=== PATIENT | female | born 1945 | race Caucasian/White ===

== ENCOUNTER 2016-10-02 16:20 | Inpatient (IN) | payer MEDICARE, MEDICAID ==
[2016-10-02 17:50] VITALS: BP 109/59
[2016-10-02] MEDS ORDERED: Maalox 30 mL Cup PO PRN (21:05)
--- NOTE | 2016-10-03 02:28 | Psychosocial Evaluation ---
DATE OF SERVICE: 10/02/2016 CHIEF COMPLAINT: Agitation and irritability. HISTORY OF PRESENT ILLNESS: The patient is a 71-year-old male who was transferred from the [facility] to the Med/Surg and Geropsych Unit. The patient has been extremely paranoid and extremely agitated. The patient also has been irritable and in angry mood. The patient was not able to answer any of my questions currently because of her irritability and rambling and paranoia. The patient keeps talking nonsense and yelling at times. The patient also was pointing out her finger in a threatening way and she kept talking with difficulty to interrupt her. The patient also has been disheveled and has been verbally abusive to staff. She also was not able to listen to any of the staff instructions. PAST PSYCHIATRIC HISTORY: The patient was seen by myself in her [facility] and the patient was extremely irritable and agitated and aggressive with the staff and tried to leave the facility multiple times while she was there. PAST MEDICAL HISTORY: The patient was under the care of when she was in the [facility] and she then went to [facility] under Dr. Rivas, and then to [facility] for only one day. SOCIAL HISTORY: The patient is single, never , and has no children. The patient has history of heavy drinking. She currently has not been drinking, but she is a chain smoker. ALLERGIES: No known allergies. MENTAL STATUS EXAMINATION: The patient appears older than her stated age. Angry. Irritable mood. Thought processes are circumstantial and tangential with flight of ideas. Pressured speech. The patient is severely paranoid and delusional. The patient was actively hallucinating, actually did not answer question regarding auditory or visual hallucinations, but talking to herself and extremely paranoid and delusional. The patient did not answer question regarding suicide or homicide. The patient is alert and oriented to the situation, but unable to assess her memory. Poor insight. Poor judgment. ASSESSMENT : PRIMARY DIAGNOSIS: Schizoaffective disorder, mixed type, with psychotic features. TREATMENT PLAN: We will continue monitoring her behavior and her condition closely. Also, we will start the patient on Seroquel and we will adjust the dose. Also, we will start individual, as well as milieu psychotherapy. ESTIMATED LENGTH OF STAY: 7-10 days. THE PATIENT'S STRENGTHS AND WEAKNESSES: The patient's strength is not clear at this time. Weakness is ineffective coping. AFTER DISCHARGE PLAN: Outpatient treatment and followup and the patient will return to [facility] unless placement will be an issue. CRITERIA FOR DISCHARGE: Better impulse control and stabilize psychotropic medications and establish outpatient treatment plans. JOB# [id number]
[2016-10-03] MEDS ORDERED: Haloperidol Lactate 5 mg/mL 1mL Vial ONE (07:16)
[2016-10-03] MEDS ORDERED: Haloperidol Lactate 5 mg/mL 1mL Vial IM ONE (07:17)
[2016-10-03] MEDS: Nicotine 21 mg/24 hr Tdm TD SCH (09:40)
--- NOTE | 2016-10-03 10:05 | Diagnostic Imaging Report ---
CHEST X-RAY: AP view INDICATION: Pneumonia COMPARISON: Chest x-ray 10/02/2016 FINDINGS: Patient is rotated. Large retrocardiac hiatal hernia is noted. Increased left basal lung markings are seen likely due to superimposition of soft tissue structures. Borderline cardiomegaly is noted with atherosclerosis. Degenerative changes of the spine are noted. IMPRESSION: Large retrocardiac hiatal hernia. Increased left basal lung markings likely due to superimposition of soft tissues. Otherwise no focal consolidation identified.
--- NOTE | 2016-10-03 20:03 | Progress Notes ---
DATE: 10/03/2016 SUBJECTIVE: Chart reviewed and the patient interviewed. Also, discussed the patient's condition with the staff and reviewed records and labs. The patient continued to be extremely irritable and extremely agitated. The patient also is yelling and screaming constantly and have difficulty following any of staff directions. The patient also was throwing water towards other patients and at staff. She also is still having severe anger and irritability and unable to follow any of staff directions. ASSESSMENT: The patient is still extremely irritable and agitated. TREATMENT PLAN: We will continue monitoring her behavior and her condition closely. We will also continue to work on her anger and her severe mood swings. Also, the patient started on Seroquel, but we will change the dose to 100 mg in the morning and at noon and at bedtime and we will continue to follow up. JOB# [id number]
[2016-10-04] MEDS: Nicotine 21 mg/24 hr Tdm TD SCH (09:52)
--- NOTE | 2016-10-04 19:49 | Progress Notes ---
DATE: 10/04/2016 SUBJECTIVE: The patient was seen, chart reviewed, and discussed with staff. The patient remains symptomatic, combative, refusing medications, getting emergency medications, throwing objects at staff, paranoid, agitated. States she is homeless, talking nonsensically, abusive, towards the clinician. States she has been in multiple psychiatric hospitals in the past. ASSESSMENT: The patient states "I'm crazy," very upset, agitated, demanding, aggressive, requiring emergency medications. PLAN: We will continue to monitor. We will encourage med compliance. The patient under the care of Dr. Ramirez at night. We will continue to monitor. Given the severity of the patient's current symptoms, she is not safe for discharge at this time. We will correct Seroquel dosage. JOB# [id number]
--- NOTE | 2016-10-04 21:41 | Admit Criteria Form ---
Admit Criteria Forms - Admit Criteria Diagnosis: PSYCHIATRIC DISORDERS (Place 'X' for any and all applicable criteria): Ongoing inpatient care may be needed for 1 or more of the following(1)(2)(3)(4)( 6)(7)(8): [ ]I. Danger to self or others not manageable at lower level of care. [ ]II. Grave disability (eg, inability to perform self care necessary at lower level of care) [ ]III. Agitation or inappropriate behavior interfering with care for primary condition (eg, attempting to discontinue lines or drains prematurely, unable to cooperate with respiratory care) [X ]IV. Severe disability or disorder indicated by ALL of the following: [X ]a) Severe behavioral health disorder-related symptoms or condition indicated by 1 or more of the following: [X ]i) Severe problem with cognition, memory, judgment, or impulse control [X ]ii) Severe clinical manifestations (eg, hallucinations , delusions, other acute psychotic symptoms, aida, extreme agitation or anxiety) [X ]b) Patient management at lower level of care is not feasible until acute intervention or modification is initiated. Extended stay beyond goal length of stay for the primary condition may be needed until ALLof the following are present(1)(2)(3)(4)(722)(23): [ ]a) Danger to self or others is absent or manageable at lower level of care [ ]b) Behavior crisis management, including physical or chemical restraints, is required and is not available at a lower level of care. [ ]c) Behavioral symptoms (e.g., agitation, somnolence, inappropriate behavior) are present, and are not manageable at a lower level of care. [ ]d) Patient cannot understand follow-up treatment and crisis plan. [ ]e) Provider and supports are sufficiently available at lower level of care. [ ]f) Patient can participate (e.g., verify absence of plan for harm) and is in needed of monitoring. The original [facility] content created by [facility] has been revised. The portions of the content which have been revised are identified through the use of italic text or in bold, and [facility] has neither reviewed nor approved the modified material. All other unmodified content is copyright [facility]. Please see references footnoted in the original [facility] edition 2017 Admit Criteria Met?: Yes
--- NOTE | 2016-10-05 09:22 | General Progress Note ---
Subjective - Review of Systems Events since last encounter: no distress Objective - Physical Exam Vitals and I&O: Vital Signs Temp 98.2 F 10/04/16 19:44 Pulse 91 10/04/16 19:44 Resp 18 10/04/16 19:44 BP 105/71 10/04/16 19:44 Pulse Ox 96 10/04/16 19:44 Intake & Output 10/04/16 10/05/16 10/05/16 18:59 06:59 18:59 Intake Total 1950 240 Balance 1950 240 Intake: Oral 1950 240 Other: # Voids 4 1 # Bowel Movements 0 Active Medications: Current Medications Acetaminophen (Tylenol) 650 mg PO Q4HR PRN PRN Reason: PAIN OR TEMP>100 Stop: 12/01/16 21:02 Al Hydrox/Mg Hydrox/Simethicone (Maalox) 30 ml PO Q6H PRN PRN Reason: Dyspepsia Stop: 12/01/16 21:04 Amoxicillin (Amoxil) 500 mg PO TID [facility] Stop: 12/02/16 08:59 Last Admin: 10/04/16 21:00 Dose: 500 mg Aspirin (Ecotrin) 81 mg PO DAILY [facility] Stop: 12/02/16 08:59 Last Admin: 10/04/16 09:52 Dose: Not Given Clopidogrel Bisulfate (Plavix) 75 mg PO DAILY [facility] Stop: 12/02/16 08:59 Last Admin: 10/04/16 09:52 Dose: Not Given Famotidine (Pepcid) 20 mg PO DAILY [facility] Stop: 12/02/16 08:59 Last Admin: 10/04/16 09:52 Dose: Not Given Lorazepam (Ativan) 1 mg PO Q6H PRN; Protocol PRN Reason: Anxiety/Agitation Stop: 12/01/16 21:04 Nicotine (Nicotine Transdermal System) 21 mg TD DAILY [facility] Stop: 12/02/16 08:59 Last Admin: 10/04/16 09:52 Dose: Not Given Quetiapine Fumarate (Seroquel) 50 mg PO HS [facility] PRN Reason: Protocol Stop: 12/02/16 20:59 Last Admin: 10/04/16 21:00 Dose: 50 mg Quetiapine Fumarate (Seroquel) 100 mg PO TID [facility] PRN Reason: Protocol Stop: 12/02/16 08:59 Last Admin: 10/04/16 21:00 Dose: 100 mg Zolpidem Tartrate (Ambien) 5 mg PO HS PRN PRN Reason: Insomnia Stop: 12/01/16 21:04 General: No acute distress HEENT: Atraumatic Lungs: Clear to auscultation Assessment/Plan - Problem List Patient Problems: All Active Problems UTI WITH AGGRESSIVE BEHAVIOR (Acute) - Plan Plan: as per psych continue current management
[2016-10-05] MEDS: Nicotine 21 mg/24 hr Tdm TD SCH (09:50)
--- NOTE | 2016-10-05 20:58 | Progress Notes ---
DATE: 10/05/2016 SUBJECTIVE: The patient seen, chart reviewed, discussed with staff. The patient coming in from nursing facility, angry, irritable, impulsive, yelling, screaming, threatening, demanding that I fix her , demanding that I get her coffee. The patient essentially refusing interview, just making demands, not answering most questions today. She is pretty hostile. The patient has gotten emergency medications while she has been in the hospital, and has also been at times refusing medications. ASSESSMENT AND PLAN: The patient remains symptomatic, impulsive, upset, angry, grandiose, not safe for a lower level of care. At this time, we will continue to encourage medication compliance. If she continues to refuse medications she may need a [place] petition. Given the severity of her symptoms there are continued safety concerns. JOB# [id number]
--- NOTE | 2016-10-06 01:39 | History & Physical ---
ADMIT DATE: 10/02/2016 CHIEF COMPLAINT: Irritability with agitation. HISTORY OF PRESENT ILLNESS: This is a 71-year-old female who was admitted from a convalescent hospital through the Med/Surg Unit, then admitted to the Geropsych Unit due to agitation and irritability. REVIEW OF SYSTEMS: GENERAL: This is a 71-year-old female that appears as stated age. The patient is a poor historian due to confusion and possible medical condition. HEAD: Denies any headache. EYES: Denies any blurring of vision. Denies any eye pain. NECK: Denies any nuchal rigidity. Denies any neck pain. CARDIOVASCULAR: Denies any palpitation. Denies any chest pain. PULMONARY: Denies coughing. Denies shortness of breath. GASTROINTESTINAL: Denies abdominal pain. Denies diarrhea. Denies constipation. GENITOURINARY: Denies any dysuria. MUSCULOSKELETAL: Denies any muscle pain. Denies any joint pain. PAST MEDICAL HISTORY: Includes coronary artery disease, gastroesophageal reflux disease, osteoarthritis, schizoaffective disorder, insomnia and nicotine dependence. SOCIAL HISTORY: The patient lived in a convalescent hospital prior to admission. FAMILY HISTORY: Unremarkable. PAST SURGICAL HISTORY: Unremarkable. PHYSICAL EXAMINATION: VITAL SIGNS: Temperature 97.6, heart rate of 70, blood pressure 105/67, respirations of 19, 98% on room air. GENERAL: The patient appears to be comfortable in no acute distress, but poor historian due to medical condition. HEENT: Head is atraumatic, normocephalic. Eyes: Bilateral conjunctivae are clear. Bilateral pupils are equally round and reactive. NECK: Supple. No JVD. CARDIOVASCULAR: S1 and S2, without murmur. PULMONARY: Clear to auscultation. GASTROINTESTINAL: Soft and nontender without guarding. Positive bowel sounds. MUSCULOSKELETAL: No clubbing, no cyanosis noted. ASSESSMENT: 1. Schizoaffective disorder. 2. Anxiety. 3. Insomnia. 4. Nicotine dependence. 5. Coronary artery disease. 6. Gastroesophageal reflux disease. PLAN: [facility] We will follow up with the Psychiatrist to monitor the patient's condition and possible medication adjustment. Treatment plans were discussed with Dr. Neff. JOB# [id number]
[2016-10-06] MEDS: Nicotine 21 mg/24 hr Tdm TD SCH (14:43)
--- NOTE | 2016-10-06 16:05 | General Progress Note ---
Subjective - Review of Systems Events since last encounter: patient remains irritable , angry psychosis Objective - Physical Exam Vitals and I&O: Vital Signs Temp 97.7 F 10/06/16 06:17 Pulse 81 10/06/16 06:17 Resp 20 10/06/16 06:17 BP 102/75 10/06/16 06:17 Pulse Ox 98 10/06/16 06:17 Intake & Output 10/05/16 10/06/16 10/06/16 18:59 06:59 18:59 Intake Total 950 240 Balance 950 240 Intake: Oral 950 240 Other: # Voids 4 0 # Bowel Movements 1 0 Active Medications: Current Medications Acetaminophen (Tylenol) 650 mg PO Q4HR PRN PRN Reason: PAIN OR TEMP>100 Stop: 12/01/16 21:02 Al Hydrox/Mg Hydrox/Simethicone (Maalox) 30 ml PO Q6H PRN PRN Reason: Dyspepsia Stop: 12/01/16 21:04 Amoxicillin (Amoxil) 500 mg PO TID [facility] Stop: 12/02/16 08:59 Last Admin: 10/06/16 14:55 Dose: 500 mg Aspirin (Ecotrin) 81 mg PO DAILY [facility] Stop: 12/02/16 08:59 Last Admin: 10/06/16 10:07 Dose: 81 mg Clopidogrel Bisulfate (Plavix) 75 mg PO DAILY [facility] Stop: 12/02/16 08:59 Last Admin: 10/06/16 10:06 Dose: 75 mg Famotidine (Pepcid) 20 mg PO DAILY [facility] Stop: 12/02/16 08:59 Last Admin: 10/06/16 10:06 Dose: 20 mg Lorazepam (Ativan) 1 mg PO Q6H PRN; Protocol PRN Reason: Anxiety/Agitation Stop: 12/01/16 21:04 Nicotine (Nicotine Transdermal System) 21 mg TD DAILY [facility] Stop: 12/02/16 08:59 Last Admin: 10/06/16 14:43 Dose: Not Given Quetiapine Fumarate (Seroquel) 100 mg PO TID [facility] PRN Reason: Protocol Stop: 12/02/16 08:59 Last Admin: 10/06/16 14:55 Dose: 100 mg Quetiapine Fumarate 50 mg/ (Quetiapine Fumarate 25 mg) 75 mg PO [facility] Stop: 12/05/16 20:59 Zolpidem Tartrate (Ambien) 5 mg PO HS PRN PRN Reason: Insomnia Stop: 12/01/16 21:04 General: No acute distress Neck: Supple Cardiovascular: Regular rate Abdomen: Bowel sounds Assessment/Plan - Problem List Patient Problems: All Active Problems UTI WITH AGGRESSIVE BEHAVIOR (Acute) - Plan Plan: as per psych continue current management
--- NOTE | 2016-10-07 03:36 | Progress Notes ---
DATE: 10/06/[address] Ramirez. This is a 71-year-old female who was admitted on 10/02/2016. The patient was transferred from [facility] to Med/Surg. The patient has been extremely paranoid, agitated, irritable and angry and not able to answer most of the questions, kept making nonsense, yelling at times, screaming, disheveled, verbally abusive to staff, not able to answer questions. Dr. Ramirez has seen on ____. She noted that she was very irritable then and aggressive. The patient When I talked to her, she was very irritable, unreasonable, very hard to redirect. Dr. Ramirez has her on Seroquel 25 mg at bedtime and ____ 3 times a day. She has been compliant with the medication with no side effects, no sedation, no nausea. I will be increasing her Seroquel dose at bedtime to ____ mg and so far no side effects, no sedation, no nausea, no extrapyramidal symptoms and we will continue to work with the patient in group therapy, milieu therapy, adjust the medication as needed. JOB# [id number]
--- NOTE | 2016-10-07 15:45 | General Progress Note ---
Objective - Physical Exam Vitals and I&O: Vital Signs Temp 97.8 F 10/07/16 06:25 Pulse 84 10/07/16 06:25 Resp 19 10/07/16 06:25 BP 110/71 10/07/16 06:25 Pulse Ox 96 10/07/16 06:25 Intake & Output 10/06/16 10/07/16 10/07/16 18:59 06:59 18:59 Intake Total 1800 120 Balance 1800 120 Intake: Oral 1800 120 Other: # Voids 4 3 # Bowel Movements 1 0 Active Medications: Current Medications Acetaminophen (Tylenol) 650 mg PO Q4HR PRN PRN Reason: PAIN OR TEMP>100 Stop: 12/01/16 21:02 Al Hydrox/Mg Hydrox/Simethicone (Maalox) 30 ml PO Q6H PRN PRN Reason: Dyspepsia Stop: 12/01/16 21:04 Amoxicillin (Amoxil) 500 mg PO TID [facility] Stop: 12/02/16 08:59 Last Admin: 10/07/16 08:12 Dose: 500 mg Aspirin (Ecotrin) 81 mg PO DAILY [facility] Stop: 12/02/16 08:59 Last Admin: 10/07/16 08:10 Dose: 81 mg Clopidogrel Bisulfate (Plavix) 75 mg PO DAILY [facility] Stop: 12/02/16 08:59 Last Admin: 10/07/16 08:10 Dose: 75 mg Famotidine (Pepcid) 20 mg PO DAILY [facility] Stop: 12/02/16 08:59 Last Admin: 10/07/16 08:10 Dose: 20 mg Lorazepam (Ativan) 1 mg PO Q6H PRN; Protocol PRN Reason: Anxiety/Agitation Stop: 12/01/16 21:04 Nicotine (Nicotine Transdermal System) 21 mg TD DAILY [facility] Stop: 12/02/16 08:59 Last Admin: 10/06/16 14:43 Dose: Not Given Quetiapine Fumarate (Seroquel) 100 mg PO TID [facility] PRN Reason: Protocol Stop: 12/02/16 08:59 Last Admin: 10/07/16 08:10 Dose: 100 mg Quetiapine Fumarate 50 mg/ (Quetiapine Fumarate 25 mg) 75 mg PO [facility] Stop: 12/05/16 20:59 Last Admin: 10/06/16 21:24 Dose: Not Given Zolpidem Tartrate (Ambien) 5 mg PO HS PRN PRN Reason: Insomnia Stop: 12/01/16 21:04 Last Admin: 10/07/16 00:05 Dose: 5 mg Assessment/Plan - Problem List Patient Problems: All Active Problems UTI WITH AGGRESSIVE BEHAVIOR (Acute) - Plan Plan: as per psych continue current management
[2016-10-07] MEDS: Nicotine 21 mg/24 hr Tdm TD SCH (17:43)
--- NOTE | 2016-10-08 08:15 | General Progress Note ---
Subjective - Review of Systems Events since last encounter: patient continues to be agitated , depressed Objective - Physical Exam Vitals and I&O: Vital Signs Temp 97.2 F 10/08/16 05:52 Pulse 77 10/08/16 05:52 Resp 20 10/08/16 05:52 BP 116/67 10/08/16 05:52 Pulse Ox 98 10/08/16 05:52 Intake & Output 10/07/16 10/08/16 10/08/16 18:59 06:59 18:59 Intake Total 2600 120 Balance 2600 120 Intake: Oral 2600 120 Other: # Voids 4 3 # Bowel Movements 1 Active Medications: Current Medications Acetaminophen (Tylenol) 650 mg PO Q4HR PRN PRN Reason: PAIN OR TEMP>100 Stop: 12/01/16 21:02 Al Hydrox/Mg Hydrox/Simethicone (Maalox) 30 ml PO Q6H PRN PRN Reason: Dyspepsia Stop: 12/01/16 21:04 Amoxicillin (Amoxil) 500 mg PO TID [facility] Stop: 12/02/16 08:59 Last Admin: 10/07/16 20:24 Dose: 500 mg Aspirin (Ecotrin) 81 mg PO DAILY [facility] Stop: 12/02/16 08:59 Last Admin: 10/07/16 08:10 Dose: 81 mg Clopidogrel Bisulfate (Plavix) 75 mg PO DAILY [facility] Stop: 12/02/16 08:59 Last Admin: 10/07/16 08:10 Dose: 75 mg Famotidine (Pepcid) 20 mg PO DAILY [facility] Stop: 12/02/16 08:59 Last Admin: 10/07/16 08:10 Dose: 20 mg Haloperidol (Haldol) 2 mg PO BID [facility] PRN Reason: Protocol Stop: 12/07/16 08:59 Lorazepam (Ativan) 1 mg PO Q6H PRN; Protocol PRN Reason: Anxiety/Agitation Stop: 12/01/16 21:04 Nicotine (Nicotine Transdermal System) 21 mg TD DAILY [facility] Stop: 12/02/16 08:59 Last Admin: 10/07/16 17:43 Dose: Not Given Quetiapine Fumarate (Seroquel) 125 mg PO TID [facility] PRN Reason: Protocol Stop: 12/02/16 08:59 Quetiapine Fumarate (Seroquel) 150 mg PO HS [facility] Stop: 12/05/16 20:59 Zolpidem Tartrate (Ambien) 5 mg PO HS PRN PRN Reason: Insomnia Stop: 12/01/16 21:04 Last Admin: 10/07/16 00:05 Dose: 5 mg General: No acute distress HEENT: Atraumatic Cardiovascular: Regular rate Abdomen: Bowel sounds Assessment/Plan - Problem List Patient Problems: All Active Problems UTI WITH AGGRESSIVE BEHAVIOR (Acute) - Plan Plan: as per psych continue current management
[2016-10-08] MEDS: Nicotine 21 mg/24 hr Tdm TD SCH (08:37)
[2016-10-09] MEDS: Nicotine 21 mg/24 hr Tdm TD SCH (10:11)
--- NOTE | 2016-10-09 10:42 | General Progress Note ---
Subjective - Review of Systems Events since last encounter: patient paranoid , agitated Objective - Physical Exam Vitals and I&O: Vital Signs Temp 97.6 F 10/08/16 14:00 Pulse 90 10/08/16 14:00 Resp 18 10/08/16 14:00 BP 104/64 10/08/16 14:00 Pulse Ox 97 10/08/16 14:00 Intake & Output 10/08/16 10/09/16 10/09/16 18:59 06:59 18:59 Intake Total 1200 Balance 1200 Intake: Oral 1200 Other: # Voids 5 # Bowel Movements 1 Active Medications: Current Medications Acetaminophen (Tylenol) 650 mg PO Q4HR PRN PRN Reason: PAIN OR TEMP>100 Stop: 12/01/16 21:02 Last Admin: 10/09/16 10:17 Dose: 650 mg Al Hydrox/Mg Hydrox/Simethicone (Maalox) 30 ml PO Q6H PRN PRN Reason: Dyspepsia Stop: 12/01/16 21:04 Aspirin (Ecotrin) 81 mg PO DAILY [facility] Stop: 12/02/16 08:59 Last Admin: 10/09/16 10:08 Dose: Not Given Clopidogrel Bisulfate (Plavix) 75 mg PO DAILY [facility] Stop: 12/02/16 08:59 Last Admin: 10/09/16 10:07 Dose: 75 mg Famotidine (Pepcid) 20 mg PO DAILY [facility] Stop: 12/02/16 08:59 Last Admin: 10/09/16 10:09 Dose: 20 mg Haloperidol (Haldol) 2 mg PO BID [facility] PRN Reason: Protocol Stop: 12/07/16 08:59 Last Admin: 10/09/16 10:04 Dose: 2 mg Lorazepam (Ativan) 1 mg PO Q6H PRN; Protocol PRN Reason: Anxiety/Agitation Stop: 12/01/16 21:04 Last Admin: 10/08/16 08:27 Dose: 1 mg Nicotine (Nicotine Transdermal System) 21 mg TD DAILY [facility] Stop: 12/02/16 08:59 Last Admin: 10/09/16 10:11 Dose: Not Given Quetiapine Fumarate 100 mg/ (Quetiapine Fumarate 25 mg) 125 mg PO TID [facility] Stop: 12/07/16 13:59 Last Admin: 10/09/16 10:10 Dose: 125 mg Quetiapine Fumarate 100 mg/ (Quetiapine Fumarate 50 mg) 150 mg PO HS [facility] Stop: 12/07/16 20:59 Last Admin: 10/08/16 20:50 Dose: 150 mg Zolpidem Tartrate (Ambien) 5 mg PO HS PRN PRN Reason: Insomnia Stop: 12/01/16 21:04 Last Admin: 10/07/16 00:05 Dose: 5 mg General: No acute distress Cardiovascular: Regular rate Abdomen: Bowel sounds Assessment/Plan - Problem List Patient Problems: All Active Problems UTI WITH AGGRESSIVE BEHAVIOR (Acute) - Plan Plan: as per psych continue current management
[2016-10-10] MEDS: Nicotine 21 mg/24 hr Tdm TD SCH (09:23)
--- NOTE | 2016-10-10 09:58 | General Progress Note ---
Subjective - Review of Systems Events since last encounter: patient awake , alert Objective - Physical Exam Vitals and I&O: Vital Signs Temp 97.6 F 10/08/16 14:00 Pulse 90 10/08/16 14:00 Resp 18 10/08/16 14:00 BP 104/64 10/08/16 14:00 Pulse Ox 97 10/08/16 14:00 Intake & Output 10/09/16 10/10/16 10/10/16 18:59 06:59 18:59 Other: # Voids 1 Active Medications: Current Medications Acetaminophen (Tylenol) 650 mg PO Q4HR PRN PRN Reason: PAIN OR TEMP>100 Stop: 12/01/16 21:02 Last Admin: 10/09/16 10:17 Dose: 650 mg Al Hydrox/Mg Hydrox/Simethicone (Maalox) 30 ml PO Q6H PRN PRN Reason: Dyspepsia Stop: 12/01/16 21:04 Aspirin (Ecotrin) 81 mg PO DAILY [facility] Stop: 12/02/16 08:59 Last Admin: 10/10/16 09:23 Dose: 81 mg Clopidogrel Bisulfate (Plavix) 75 mg PO DAILY [facility] Stop: 12/02/16 08:59 Last Admin: 10/10/16 09:22 Dose: 75 mg Famotidine (Pepcid) 20 mg PO DAILY [facility] Stop: 12/02/16 08:59 Last Admin: 10/10/16 09:23 Dose: 20 mg Haloperidol (Haldol) 2 mg PO BID LG PRN Reason: Protocol Stop: 12/07/16 08:59 Last Admin: 10/10/16 09:19 Dose: 2 mg Lorazepam (Ativan) 1 mg PO Q6H PRN; Protocol PRN Reason: Anxiety/Agitation Stop: 12/01/16 21:04 Last Admin: 10/08/16 08:27 Dose: 1 mg Nicotine (Nicotine Transdermal System) 21 mg TD DAILY [facility] Stop: 12/02/16 08:59 Last Admin: 10/10/16 09:23 Dose: Not Given Quetiapine Fumarate 100 mg/ (Quetiapine Fumarate 25 mg) 125 mg PO TID [facility] Stop: 12/07/16 13:59 Last Admin: 10/10/16 09:20 Dose: 125 mg Quetiapine Fumarate 100 mg/ (Quetiapine Fumarate 50 mg) 150 mg PO HS LG Stop: 12/07/16 20:59 Last Admin: 10/09/16 20:35 Dose: Not Given Zolpidem Tartrate (Ambien) 5 mg PO HS PRN PRN Reason: Insomnia Stop: 12/01/16 21:04 Last Admin: 10/07/16 00:05 Dose: 5 mg Assessment/Plan - Problem List Patient Problems: All Active Problems UTI WITH AGGRESSIVE BEHAVIOR (Acute) - Plan Plan: as per psych continue current management Nutritional Asmnt/Malnutr-PDOC - Dietary Evaluation Malnutrition Findings (Please click <Entered> for more info): Nutritional Asmnt/Malnutrition Start: 10/09/16 17: 29 Text: Status: Complete Freq: Document 10/09/16 17:29 [email or web address] (Rec: 10/09/16 17:42 GSUN [email or web address]) Nutritional Asmnt/Malnutrition Patient General Information Nutritional Screening Diagnosis Diagnosis Schizoaffective dsiorder, anxiety Pertinent Medical Hx/Surgical Hx CAD, GERD, osteoarthritis, schizoaffective disorder, insomnia, nicotine dependence Subjective Information 71 year old female. Pt usually seen in wheelchair, RD made small talks with pt before, pt may be very pleasant or unpleasant at times. RD attempted visit twice today, AM and PM, pt slept the whole day except meal time. Spoke to RN, RN stated pt has mood swings, PO intake may be driven by mentation, however so far no nutritional concerns since adm. Unable to complete physical assessment as pt was curled up asleep. Avg PO intake 75-100% of meals since adm, meeting nutritional needs . Current Diet Order/ Nutrition Support Regular Pertinent Medications Maalox, Pepcid, Haldol, Nicotine Transdermal System Pertinent Labs No current labs. Nutritional Hx/Data Height 1.52 m Height (Calculated Centimeters) 152.4 Current Weight (lbs) 51.71 kg Weight (Calculated Kilograms) 51.7 Weight (Calculated Grams) 55526.5 [place] Body Weight 100 Weight Status Approriate GI Symptoms Cultural/Ethnic/Sabianism Belief Pt likes coffee. Skin Integrity/Comment: Cameron Son. Skin intact. Current %PO Good (75-100%) Estimated Nutritional Goals BEE in Kcals: Using Current wt Calories/Kcals/Kg CBW 114lb/51.8kg Kcals Calculated 1295-1554kcal (25-30kcal/kg) Protein: Using Current wt Protein Calculated 52g (1g/kg) Fluid: ml 1295-1554ml (1ml/kcal) Nutritional Problem 1. Problem Problem No nutrition problem at this time. Intervention/Recommendation Comments 1. Continue with current diet. Avg PO intake is adequate. Expected Outcomes/Goals Expected Outcomes/Goals 1. PO intake continue to meet at least 75% of estimated nutritional needs.
[2016-10-10] MEDS ORDERED: Haloperidol Lactate 5 mg/mL 1mL Vial IM STA (10:42)
[2016-10-10] MEDS ORDERED: Haloperidol Lactate 5 mg/mL 1mL Vial ONE (10:44)
[2016-10-11] MEDS: Nicotine 21 mg/24 hr Tdm TD SCH (09:00)
[2016-10-12] MEDS: Nicotine 21 mg/24 hr Tdm TD SCH (13:37)
--- NOTE | 2016-10-12 17:01 | General Progress Note ---
Subjective - Review of Systems Events since last encounter: no distress Objective - Physical Exam Vitals and I&O: Vital Signs Temp 98.0 F 10/12/16 15:47 Pulse 83 10/12/16 15:47 Resp 20 10/12/16 15:47 BP 105/63 10/12/16 15:47 Pulse Ox 96 10/12/16 15:47 Intake & Output 10/11/16 10/12/16 10/12/16 18:59 06:59 18:59 Intake Total 1700 120 Output Total 1 Balance 1699 120 Intake: Oral 1700 120 Output: Stool 1 Other: # Voids 4 4 # Bowel Movements 2 Active Medications: Current Medications Acetaminophen (Tylenol) 650 mg PO Q4HR PRN PRN Reason: PAIN OR TEMP>100 Stop: 12/01/16 21:02 Last Admin: 10/09/16 10:17 Dose: 650 mg Al Hydrox/Mg Hydrox/Simethicone (Maalox) 30 ml PO Q6H PRN PRN Reason: Dyspepsia Stop: 12/01/16 21:04 Last Admin: 10/11/16 15:30 Dose: 30 ml Aspirin (Ecotrin) 81 mg PO DAILY [facility] Stop: 12/02/16 08:59 Last Admin: 10/12/16 13:37 Dose: Not Given Clopidogrel Bisulfate (Plavix) 75 mg PO DAILY [facility] Stop: 12/02/16 08:59 Last Admin: 10/12/16 13:37 Dose: Not Given Famotidine (Pepcid) 20 mg PO DAILY [facility] Stop: 12/02/16 08:59 Last Admin: 10/12/16 13:37 Dose: Not Given Haloperidol (Haldol) 2 mg PO BID LG PRN Reason: Protocol Stop: 12/07/16 08:59 Last Admin: 10/12/16 16:02 Dose: Not Given Lorazepam (Ativan) 1 mg PO Q6H PRN; Protocol PRN Reason: Anxiety/Agitation Stop: 12/01/16 21:04 Last Admin: 10/08/16 08:27 Dose: 1 mg Nicotine (Nicotine Transdermal System) 21 mg TD DAILY [facility] Stop: 12/02/16 08:59 Last Admin: 10/12/16 13:37 Dose: Not Given Quetiapine Fumarate 100 mg/ (Quetiapine Fumarate 25 mg) 125 mg PO TID [facility] Stop: 12/07/16 13:59 Last Admin: 10/12/16 13:37 Dose: Not Given Quetiapine Fumarate 100 mg/ (Quetiapine Fumarate 50 mg) 150 mg PO HS LG Stop: 12/07/16 20:59 Last Admin: 10/11/16 21:08 Dose: 150 mg Zolpidem Tartrate (Ambien) 5 mg PO HS PRN PRN Reason: Insomnia Stop: 12/01/16 21:04 Last Admin: 10/11/16 21:08 Dose: 5 mg General: No acute distress HEENT: Atraumatic Cardiovascular: Regular rate Abdomen: Bowel sounds Assessment/Plan - Problem List Patient Problems: All Active Problems UTI WITH AGGRESSIVE BEHAVIOR (Acute) - Plan Plan: as per psych continue current management Nutritional Asmnt/Malnutr-PDOC - Dietary Evaluation Malnutrition Findings (Please click <Entered> for more info): Nutritional Asmnt/Malnutrition Start: 10/09/16 17: 29 Text: Status: Complete Freq: Document 10/09/16 17:29 GSUN (Rec: 10/09/16 17:42 GSUN [email or web address]) Nutritional Asmnt/Malnutrition Patient General Information Nutritional Screening Diagnosis Diagnosis Schizoaffective dsiorder, anxiety Pertinent Medical Hx/Surgical Hx CAD, GERD, osteoarthritis, schizoaffective disorder, insomnia, nicotine dependence Subjective Information 71 year old female. Pt usually seen in wheelchair, RD made small talks with pt before, pt may be very pleasant or unpleasant at times. RD attempted visit twice today, AM and PM, pt slept the whole day except meal time. Spoke to RN, RN stated pt has mood swings, PO intake may be driven by mentation, however so far no nutritional concerns since adm. Unable to complete physical assessment as pt was curled up asleep. Avg PO intake 75-100% of meals since adm, meeting nutritional needs . Current Diet Order/ Nutrition Support Regular Pertinent Medications Maalox, Pepcid, Haldol, Nicotine Transdermal System Pertinent Labs No current labs. Nutritional Hx/Data Height 1.52 m Height (Calculated Centimeters) 152.4 Current Weight (lbs) 51.71 kg Weight (Calculated Kilograms) 51.7 Weight (Calculated Grams) 97403.5 [place] Body Weight 100 Weight Status Approriate GI Symptoms Cultural/Ethnic/Jain Belief Pt likes coffee. Skin Integrity/Comment: Cameron 19. Skin intact. Current %PO Good (75-100%) Estimated Nutritional Goals BEE in Kcals: Using Current wt Calories/Kcals/Kg CBW 114lb/51.8kg Kcals Calculated 1295-1554kcal (25-30kcal/kg) Protein: Using Current wt Protein Calculated 52g (1g/kg) Fluid: ml 1295-1554ml (1ml/kcal) Nutritional Problem 1. Problem Problem No nutrition problem at this time. Intervention/Recommendation Comments 1. Continue with current diet. Avg PO intake is adequate. Expected Outcomes/Goals Expected Outcomes/Goals 1. PO intake continue to meet at least 75% of estimated nutritional needs.
--- NOTE | 2016-10-13 12:43 | General Progress Note ---
Subjective - Review of Systems Events since last encounter: continues to be paranoid Objective - Physical Exam Vitals and I&O: Vital Signs Temp 98.1 F 10/13/16 06:17 Pulse 77 10/13/16 06:17 Resp 20 10/13/16 06:17 BP 103/66 10/13/16 06:17 Pulse Ox 99 10/13/16 06:17 Intake & Output 10/12/16 10/13/16 10/13/16 18:59 06:59 18:59 Intake Total 240 Balance 240 Intake: Oral 240 Other: # Voids 1 # Bowel Movements 0 Active Medications: Current Medications Acetaminophen (Tylenol) 650 mg PO Q4HR PRN PRN Reason: PAIN OR TEMP>100 Stop: 12/01/16 21:02 Last Admin: 10/09/16 10:17 Dose: 650 mg Al Hydrox/Mg Hydrox/Simethicone (Maalox) 30 ml PO Q6H PRN PRN Reason: Dyspepsia Stop: 12/01/16 21:04 Last Admin: 10/11/16 15:30 Dose: 30 ml Aspirin (Ecotrin) 81 mg PO DAILY [facility] Stop: 12/02/16 08:59 Last Admin: 10/12/16 13:37 Dose: Not Given Clopidogrel Bisulfate (Plavix) 75 mg PO DAILY [facility] Stop: 12/02/16 08:59 Last Admin: 10/12/16 13:37 Dose: Not Given Famotidine (Pepcid) 20 mg PO DAILY [facility] Stop: 12/02/16 08:59 Last Admin: 10/12/16 13:37 Dose: Not Given Haloperidol (Haldol) 2 mg PO BID LG PRN Reason: Protocol Stop: 12/07/16 08:59 Last Admin: 10/12/16 16:02 Dose: Not Given Haloperidol Decanoate (Haldol Dec) 50 mg IM QMONTH LG PRN Reason: Protocol Stop: 12/12/16 05:59 Last Admin: 10/13/16 06:45 Dose: 50 mg Lorazepam (Ativan) 1 mg PO Q6H PRN; Protocol PRN Reason: Anxiety/Agitation Stop: 12/01/16 21:04 Last Admin: 10/08/16 08:27 Dose: 1 mg Nicotine (Nicotine Transdermal System) 21 mg TD DAILY [facility] Stop: 12/02/16 08:59 Last Admin: 10/12/16 13:37 Dose: Not Given Quetiapine Fumarate (Seroquel) 150 mg PO BID LG PRN Reason: Protocol Stop: 12/12/16 08:59 Quetiapine Fumarate (Seroquel) 300 mg PO HS LG PRN Reason: Protocol Stop: 12/12/16 20:59 Zolpidem Tartrate (Ambien) 5 mg PO HS PRN PRN Reason: Insomnia Stop: 12/01/16 21:04 Last Admin: 10/12/16 21:21 Dose: 5 mg General: No acute distress Neck: Thyromegaly Assessment/Plan - Problem List Patient Problems: All Active Problems UTI WITH AGGRESSIVE BEHAVIOR (Acute) - Plan Plan: as per psych continue current management Nutritional Asmnt/Malnutr-PDOC - Dietary Evaluation Malnutrition Findings (Please click <Entered> for more info): Nutritional Asmnt/Malnutrition Start: 10/09/16 17: 29 Text: Status: Complete Freq: Document 10/09/16 17:29 GSUN (Rec: 10/09/16 17:42 GSUN [email or web address]) Nutritional Asmnt/Malnutrition Patient General Information Nutritional Screening Diagnosis Diagnosis Schizoaffective dsiorder, anxiety Pertinent Medical Hx/Surgical Hx CAD, GERD, osteoarthritis, schizoaffective disorder, insomnia, nicotine dependence Subjective Information 71 year old female. Pt usually seen in wheelchair, RD made small talks with pt before, pt may be very pleasant or unpleasant at times. RD attempted visit twice today, AM and PM, pt slept the whole day except meal time. Spoke to RN, RN stated pt has mood swings, PO intake may be driven by mentation, however so far no nutritional concerns since adm. Unable to complete physical assessment as pt was curled up asleep. Avg PO intake 75-100% of meals since adm, meeting nutritional needs . Current Diet Order/ Nutrition Support Regular Pertinent Medications Maalox, Pepcid, Haldol, Nicotine Transdermal System Pertinent Labs No current labs. Nutritional Hx/Data Height 1.52 m Height (Calculated Centimeters) 152.4 Current Weight (lbs) 51.71 kg Weight (Calculated Kilograms) 51.7 Weight (Calculated Grams) 07934.5 [place] Body Weight 100 Weight Status Approriate GI Symptoms Cultural/Ethnic/Advent Belief Pt likes coffee. Skin Integrity/Comment: Cameron Son. Skin intact. Current %PO Good (75-100%) Estimated Nutritional Goals BEE in Kcals: Using Current wt Calories/Kcals/Kg CBW 114lb/51.8kg Kcals Calculated 1295-1554kcal (25-30kcal/kg) Protein: Using Current wt Protein Calculated 52g (1g/kg) Fluid: ml 1295-1554ml (1ml/kcal) Nutritional Problem 1. Problem Problem No nutrition problem at this time. Intervention/Recommendation Comments 1. Continue with current diet. Avg PO intake is adequate. Expected Outcomes/Goals Expected Outcomes/Goals 1. PO intake continue to meet at least 75% of estimated nutritional needs.
[2016-10-13] MEDS: Nicotine 21 mg/24 hr Tdm TD SCH (16:59)
--- NOTE | 2016-10-14 10:23 | General Progress Note ---
Subjective - Review of Systems Events since last encounter: no change Objective - Physical Exam Vitals and I&O: Vital Signs Temp 97.8 F 10/14/16 06:06 Pulse 81 10/14/16 06:06 Resp 19 10/14/16 06:06 BP 87/65 10/14/16 06:06 Pulse Ox 97 10/13/16 20:02 Intake & Output 10/13/16 10/14/16 10/14/16 18:59 06:59 18:59 Intake Total 900 120 Balance 900 120 Intake: Oral 900 120 Other: # Voids 4 2 # Bowel Movements 1 0 Active Medications: Current Medications Acetaminophen (Tylenol) 650 mg PO Q4HR PRN PRN Reason: PAIN OR TEMP>100 Stop: 12/01/16 21:02 Last Admin: 10/09/16 10:17 Dose: 650 mg Al Hydrox/Mg Hydrox/Simethicone (Maalox) 30 ml PO Q6H PRN PRN Reason: Dyspepsia Stop: 12/01/16 21:04 Last Admin: 10/11/16 15:30 Dose: 30 ml Aspirin (Ecotrin) 81 mg PO DAILY [facility] Stop: 12/02/16 08:59 Last Admin: 10/13/16 16:57 Dose: Not Given Clopidogrel Bisulfate (Plavix) 75 mg PO DAILY [facility] Stop: 12/02/16 08:59 Last Admin: 10/13/16 16:57 Dose: Not Given Famotidine (Pepcid) 20 mg PO DAILY [facility] Stop: 12/02/16 08:59 Last Admin: 10/13/16 16:58 Dose: Not Given Haloperidol (Haldol) 2 mg PO BID LG PRN Reason: Protocol Stop: 12/07/16 08:59 Last Admin: 10/14/16 10:15 Dose: 2 mg Haloperidol Decanoate (Haldol Dec) 50 mg IM QMONTH LG PRN Reason: Protocol Stop: 12/12/16 05:59 Last Admin: 10/13/16 06:45 Dose: 50 mg Lorazepam (Ativan) 1 mg PO Q6H PRN; Protocol PRN Reason: Anxiety/Agitation Stop: 12/01/16 21:04 Last Admin: 10/08/16 08:27 Dose: 1 mg Nicotine (Nicotine Transdermal System) 21 mg TD DAILY [facility] Stop: 12/02/16 08:59 Last Admin: 10/13/16 16:59 Dose: Not Given Quetiapine Fumarate (Seroquel) 150 mg PO BID LG PRN Reason: Protocol Stop: 12/12/16 08:59 Last Admin: 10/14/16 10:15 Dose: 150 mg Quetiapine Fumarate (Seroquel) 300 mg PO HS LG PRN Reason: Protocol Stop: 12/12/16 20:59 Last Admin: 10/13/16 20:51 Dose: 300 mg Zolpidem Tartrate (Ambien) 5 mg PO HS PRN PRN Reason: Insomnia Stop: 12/01/16 21:04 Last Admin: 10/13/16 20:52 Dose: 5 mg General: No acute distress HEENT: Atraumatic Neck: Supple Cardiovascular: Regular rate Assessment/Plan - Problem List Patient Problems: All Active Problems UTI WITH AGGRESSIVE BEHAVIOR (Acute) - Plan Plan: as per psych continue current management Nutritional Asmnt/Malnutr-PDOC - Dietary Evaluation Malnutrition Findings (Please click <Entered> for more info): Nutritional Asmnt/Malnutrition Start: 10/09/16 17: 29 Text: Status: Complete Freq: Document 10/09/16 17:29 GSUN (Rec: 10/09/16 17:42 GSUN [email or web address]) Nutritional Asmnt/Malnutrition Patient General Information Nutritional Screening Diagnosis Diagnosis Schizoaffective dsiorder, anxiety Pertinent Medical Hx/Surgical Hx CAD, GERD, osteoarthritis, schizoaffective disorder, insomnia, nicotine dependence Subjective Information 71 year old female. Pt usually seen in wheelchair, RD made small talks with pt before, pt may be very pleasant or unpleasant at times. RD attempted visit twice today, AM and PM, pt slept the whole day except meal time. Spoke to RN, RN stated pt has mood swings, PO intake may be driven by mentation, however so far no nutritional concerns since adm. Unable to complete physical assessment as pt was curled up asleep. Avg PO intake 75-100% of meals since adm, meeting nutritional needs . Current Diet Order/ Nutrition Support Regular Pertinent Medications Maalox, Pepcid, Haldol, Nicotine Transdermal System Pertinent Labs No current labs. Nutritional Hx/Data Height 1.52 m Height (Calculated Centimeters) 152.4 Current Weight (lbs) 51.71 kg Weight (Calculated Kilograms) 51.7 Weight (Calculated Grams) 78944.5 [place] Body Weight 100 Weight Status Approriate GI Symptoms Cultural/Ethnic/Catholic Belief Pt likes coffee. Skin Integrity/Comment: Cameron Son. Skin intact. Current %PO Good (75-100%) Estimated Nutritional Goals BEE in Kcals: Using Current wt Calories/Kcals/Kg CBW 114lb/51.8kg Kcals Calculated 1295-1554kcal (25-30kcal/kg) Protein: Using Current wt Protein Calculated 52g (1g/kg) Fluid: ml 1295-1554ml (1ml/kcal) Nutritional Problem 1. Problem Problem No nutrition problem at this time. Intervention/Recommendation Comments 1. Continue with current diet. Avg PO intake is adequate. Expected Outcomes/Goals Expected Outcomes/Goals 1. PO intake continue to meet at least 75% of estimated nutritional needs.
[2016-10-14] MEDS: Nicotine 21 mg/24 hr Tdm TD SCH (12:31)
[2016-10-15] MEDS: Nicotine 21 mg/24 hr Tdm TD SCH (08:46)
--- NOTE | 2016-10-15 09:12 | General Progress Note ---
Subjective - Review of Systems Events since last encounter: patient with no distress awake,alert Objective - Physical Exam Vitals and I&O: Vital Signs Temp 98.1 F 10/15/16 05:55 Pulse 71 10/15/16 05:55 Resp 18 10/15/16 05:55 BP 90/56 10/15/16 05:55 Pulse Ox 96 10/15/16 05:55 Intake & Output 10/14/16 10/15/16 10/15/16 18:59 06:59 18:59 Intake Total 900 480 Balance 900 480 Intake: Oral 900 480 Other: # Voids 4 1 # Bowel Movements 0 Active Medications: Current Medications Acetaminophen (Tylenol) 650 mg PO Q4HR PRN PRN Reason: PAIN OR TEMP>100 Stop: 12/01/16 21:02 Last Admin: 10/09/16 10:17 Dose: 650 mg Al Hydrox/Mg Hydrox/Simethicone (Maalox) 30 ml PO Q6H PRN PRN Reason: Dyspepsia Stop: 12/01/16 21:04 Last Admin: 10/11/16 15:30 Dose: 30 ml Aspirin (Ecotrin) 81 mg PO DAILY [facility] Stop: 12/02/16 08:59 Last Admin: 10/15/16 08:43 Dose: 81 mg Clopidogrel Bisulfate (Plavix) 75 mg PO DAILY [facility] Stop: 12/02/16 08:59 Last Admin: 10/15/16 08:44 Dose: 75 mg Famotidine (Pepcid) 20 mg PO DAILY [facility] Stop: 12/02/16 08:59 Last Admin: 10/15/16 08:44 Dose: 20 mg Haloperidol (Haldol) 2 mg PO BID LG PRN Reason: Protocol Stop: 12/07/16 08:59 Last Admin: 10/15/16 08:44 Dose: 2 mg Haloperidol Decanoate (Haldol Dec) 50 mg IM QMONTH LG PRN Reason: Protocol Stop: 12/12/16 05:59 Last Admin: 10/13/16 06:45 Dose: 50 mg Lorazepam (Ativan) 1 mg PO Q6H PRN; Protocol PRN Reason: Anxiety/Agitation Stop: 12/01/16 21:04 Last Admin: 10/15/16 02:37 Dose: 1 mg Nicotine (Nicotine Transdermal System) 21 mg TD DAILY [facility] Stop: 12/02/16 08:59 Last Admin: 10/15/16 08:46 Dose: Not Given Quetiapine Fumarate (Seroquel) 300 mg PO HS LG PRN Reason: Protocol Stop: 12/12/16 20:59 Last Admin: 10/14/16 20:11 Dose: 300 mg Quetiapine Fumarate (Seroquel) 200 mg PO BID LG PRN Reason: Protocol Stop: 12/12/16 08:59 Last Admin: 10/15/16 08:43 Dose: 200 mg Zolpidem Tartrate (Ambien) 5 mg PO HS PRN PRN Reason: Insomnia Stop: 12/01/16 21:04 Last Admin: 10/13/16 20:52 Dose: 5 mg General: No acute distress HEENT: Atraumatic Neck: Supple Cardiovascular: Regular rate, Normal S1, Normal S2 Assessment/Plan - Problem List Patient Problems: All Active Problems UTI WITH AGGRESSIVE BEHAVIOR (Acute) - Plan Plan: as per psych continue current management Nutritional Asmnt/Malnutr-PDOC - Dietary Evaluation Malnutrition Findings (Please click <Entered> for more info): Nutritional Asmnt/Malnutrition Start: 10/09/16 17: 29 Text: Status: Complete Freq: Document 10/09/16 17:29 GSUN (Rec: 10/09/16 17:42 GSUN [email or web address]) Nutritional Asmnt/Malnutrition Patient General Information Nutritional Screening Diagnosis Diagnosis Schizoaffective dsiorder, anxiety Pertinent Medical Hx/Surgical Hx CAD, GERD, osteoarthritis, schizoaffective disorder, insomnia, nicotine dependence Subjective Information 71 year old female. Pt usually seen in wheelchair, RD made small talks with pt before, pt may be very pleasant or unpleasant at times. RD attempted visit twice today, AM and PM, pt slept the whole day except meal time. Spoke to RN, RN stated pt has mood swings, PO intake may be driven by mentation, however so far no nutritional concerns since adm. Unable to complete physical assessment as pt was curled up asleep. Avg PO intake 75-100% of meals since adm, meeting nutritional needs . Current Diet Order/ Nutrition Support Regular Pertinent Medications Maalox, Pepcid, Haldol, Nicotine Transdermal System Pertinent Labs No current labs. Nutritional Hx/Data Height 1.52 m Height (Calculated Centimeters) 152.4 Current Weight (lbs) 51.71 kg Weight (Calculated Kilograms) 51.7 Weight (Calculated Grams) 33348.5 [place] Body Weight 100 Weight Status Approriate GI Symptoms Cultural/Ethnic/Latter-Day Belief Pt likes coffee. Skin Integrity/Comment: Cameron 19. Skin intact. Current %PO Good (75-100%) Estimated Nutritional Goals BEE in Kcals: Using Current wt Calories/Kcals/Kg CBW 114lb/51.8kg Kcals Calculated 1295-1554kcal (25-30kcal/kg) Protein: Using Current wt Protein Calculated 52g (1g/kg) Fluid: ml 1295-1554ml (1ml/kcal) Nutritional Problem 1. Problem Problem No nutrition problem at this time. Intervention/Recommendation Comments 1. Continue with current diet. Avg PO intake is adequate. Expected Outcomes/Goals Expected Outcomes/Goals 1. PO intake continue to meet at least 75% of estimated nutritional needs.
[2016-10-16] MEDS: Nicotine 21 mg/24 hr Tdm TD SCH (08:37)
--- NOTE | 2016-10-16 09:48 | General Progress Note ---
Subjective - Review of Systems Events since last encounter: patient still irritable Objective - Physical Exam Vitals and I&O: Vital Signs Temp 97.1 F 10/16/16 06:19 Pulse 75 10/16/16 06:19 Resp 20 10/16/16 06:19 BP 92/57 10/16/16 06:19 Pulse Ox 97 10/16/16 06:19 Intake & Output 10/15/16 10/16/16 10/16/16 18:59 06:59 18:59 Intake Total 1200 120 Balance 1200 120 Intake: Oral 1200 120 Other: # Voids 3 # Bowel Movements 1 Active Medications: Current Medications Acetaminophen (Tylenol) 650 mg PO Q4HR PRN PRN Reason: PAIN OR TEMP>100 Stop: 12/01/16 21:02 Last Admin: 10/09/16 10:17 Dose: 650 mg Al Hydrox/Mg Hydrox/Simethicone (Maalox) 30 ml PO Q6H PRN PRN Reason: Dyspepsia Stop: 12/01/16 21:04 Last Admin: 10/11/16 15:30 Dose: 30 ml Aspirin (Ecotrin) 81 mg PO DAILY [facility] Stop: 12/02/16 08:59 Last Admin: 10/16/16 08:35 Dose: 81 mg Clopidogrel Bisulfate (Plavix) 75 mg PO DAILY [facility] Stop: 12/02/16 08:59 Last Admin: 10/16/16 08:35 Dose: 75 mg Famotidine (Pepcid) 20 mg PO DAILY [facility] Stop: 12/02/16 08:59 Last Admin: 10/16/16 08:35 Dose: 20 mg Haloperidol (Haldol) 2 mg PO BID LG PRN Reason: Protocol Stop: 12/07/16 08:59 Last Admin: 10/16/16 08:35 Dose: 2 mg Haloperidol Decanoate (Haldol Dec) 50 mg IM QMONTH LG PRN Reason: Protocol Stop: 12/12/16 05:59 Last Admin: 10/13/16 06:45 Dose: 50 mg Lorazepam (Ativan) 1 mg PO Q6H PRN; Protocol PRN Reason: Anxiety/Agitation Stop: 12/01/16 21:04 Last Admin: 10/15/16 02:37 Dose: 1 mg Nicotine (Nicotine Transdermal System) 21 mg TD DAILY [facility] Stop: 12/02/16 08:59 Last Admin: 10/16/16 08:37 Dose: Not Given Quetiapine Fumarate (Seroquel) 300 mg PO HS LG PRN Reason: Protocol Stop: 12/12/16 20:59 Last Admin: 10/15/16 20:16 Dose: 300 mg Quetiapine Fumarate (Seroquel) 200 mg PO BID LG PRN Reason: Protocol Stop: 12/12/16 08:59 Last Admin: 10/16/16 08:35 Dose: 200 mg Zolpidem Tartrate (Ambien) 5 mg PO HS PRN PRN Reason: Insomnia Stop: 12/01/16 21:04 Last Admin: 10/15/16 20:20 Dose: 5 mg General: No acute distress HEENT: Atraumatic Cardiovascular: Regular rate, Normal S1, Normal S2 Assessment/Plan - Problem List Patient Problems: All Active Problems UTI WITH AGGRESSIVE BEHAVIOR (Acute) - Plan Plan: as per psych continue current management Nutritional Asmnt/Malnutr-PDOC - Dietary Evaluation Malnutrition Findings (Please click <Entered> for more info): Nutritional Asmnt/Malnutrition Start: 10/09/16 17: 29 Text: Status: Complete Freq: Document 10/09/16 17:29 GSUN (Rec: 10/09/16 17:42 GSUN [email or web address]) Nutritional Asmnt/Malnutrition Patient General Information Nutritional Screening Diagnosis Diagnosis Schizoaffective dsiorder, anxiety Pertinent Medical Hx/Surgical Hx CAD, GERD, osteoarthritis, schizoaffective disorder, insomnia, nicotine dependence Subjective Information 71 year old female. Pt usually seen in wheelchair, RD made small talks with pt before, pt may be very pleasant or unpleasant at times. RD attempted visit twice today, AM and PM, pt slept the whole day except meal time. Spoke to RN, RN stated pt has mood swings, PO intake may be driven by mentation, however so far no nutritional concerns since adm. Unable to complete physical assessment as pt was curled up asleep. Avg PO intake 75-100% of meals since adm, meeting nutritional needs . Current Diet Order/ Nutrition Support Regular Pertinent Medications Maalox, Pepcid, Haldol, Nicotine Transdermal System Pertinent Labs No current labs. Nutritional Hx/Data Height 1.52 m Height (Calculated Centimeters) 152.4 Current Weight (lbs) 51.71 kg Weight (Calculated Kilograms) 51.7 Weight (Calculated Grams) 41445.5 [place] Body Weight 100 Weight Status Approriate GI Symptoms Cultural/Ethnic/Gnosticist Belief Pt likes coffee. Skin Integrity/Comment: [place] 19. Skin intact. Current %PO Good (75-100%) Estimated Nutritional Goals BEE in Kcals: Using Current wt Calories/Kcals/Kg CBW 114lb/51.8kg Kcals Calculated 1295-1554kcal (25-30kcal/kg) Protein: Using Current wt Protein Calculated 52g (1g/kg) Fluid: ml 1295-1554ml (1ml/kcal) Nutritional Problem 1. Problem Problem No nutrition problem at this time. Intervention/Recommendation Comments 1. Continue with current diet. Avg PO intake is adequate. Expected Outcomes/Goals Expected Outcomes/Goals 1. PO intake continue to meet at least 75% of estimated nutritional needs.
--- NOTE | 2016-10-17 09:35 | General Progress Note ---
Subjective - Review of Systems Events since last encounter: no distress patient awake,alert Objective - Physical Exam Vitals and I&O: Vital Signs Temp 97.1 F 10/17/16 06:55 Pulse 68 10/17/16 06:55 Resp 18 10/17/16 06:55 BP 90/54 10/17/16 06:55 Pulse Ox 97 10/17/16 06:55 Intake & Output 10/16/16 10/17/16 10/17/16 18:59 06:59 18:59 Intake Total 120 Balance 120 Intake: Oral 120 Other: # Voids 3 Active Medications: Current Medications Acetaminophen (Tylenol) 650 mg PO Q4HR PRN PRN Reason: PAIN OR TEMP>100 Stop: 12/01/16 21:02 Last Admin: 10/09/16 10:17 Dose: 650 mg Al Hydrox/Mg Hydrox/Simethicone (Maalox) 30 ml PO Q6H PRN PRN Reason: Dyspepsia Stop: 12/01/16 21:04 Last Admin: 10/11/16 15:30 Dose: 30 ml Aspirin (Ecotrin) 81 mg PO DAILY [facility] Stop: 12/02/16 08:59 Last Admin: 10/16/16 08:35 Dose: 81 mg Clopidogrel Bisulfate (Plavix) 75 mg PO DAILY [facility] Stop: 12/02/16 08:59 Last Admin: 10/16/16 08:35 Dose: 75 mg Famotidine (Pepcid) 20 mg PO DAILY [facility] Stop: 12/02/16 08:59 Last Admin: 10/16/16 08:35 Dose: 20 mg Haloperidol (Haldol) 2 mg PO BID LG PRN Reason: Protocol Stop: 12/07/16 08:59 Last Admin: 10/16/16 17:56 Dose: 2 mg Haloperidol Decanoate (Haldol Dec) 50 mg IM QMONTH LG PRN Reason: Protocol Stop: 12/12/16 05:59 Last Admin: 10/13/16 06:45 Dose: 50 mg Lorazepam (Ativan) 1 mg PO Q6H PRN; Protocol PRN Reason: Anxiety/Agitation Stop: 12/01/16 21:04 Last Admin: 10/15/16 02:37 Dose: 1 mg Nicotine (Nicotine Transdermal System) 21 mg TD DAILY [facility] Stop: 12/02/16 08:59 Last Admin: 10/16/16 08:37 Dose: Not Given Quetiapine Fumarate (Seroquel) 300 mg PO HS LG PRN Reason: Protocol Stop: 12/12/16 20:59 Last Admin: 10/16/16 21:09 Dose: 300 mg Quetiapine Fumarate (Seroquel) 200 mg PO BID LG PRN Reason: Protocol Stop: 12/12/16 08:59 Last Admin: 10/16/16 17:56 Dose: 200 mg Zolpidem Tartrate (Ambien) 5 mg PO HS PRN PRN Reason: Insomnia Stop: 12/01/16 21:04 Last Admin: 10/16/16 21:10 Dose: 5 mg General: No acute distress HEENT: Atraumatic Neck: Supple Cardiovascular: Regular rate, Normal S1, Normal S2 Lungs: Clear to auscultation Abdomen: Bowel sounds Assessment/Plan - Problem List Patient Problems: All Active Problems UTI WITH AGGRESSIVE BEHAVIOR (Acute) - Plan Plan: as per psych continue current management Nutritional Asmnt/Malnutr-PDOC - Dietary Evaluation Malnutrition Findings (Please click <Entered> for more info): Nutritional Asmnt/Malnutrition Start: 10/09/16 17: 29 Text: Status: Complete Freq: Document 10/09/16 17:29 GSUN (Rec: 10/09/16 17:42 GSUN [email or web address]) Nutritional Asmnt/Malnutrition Patient General Information Nutritional Screening Diagnosis Diagnosis Schizoaffective dsiorder, anxiety Pertinent Medical Hx/Surgical Hx CAD, GERD, osteoarthritis, schizoaffective disorder, insomnia, nicotine dependence Subjective Information 71 year old female. Pt usually seen in wheelchair, RD made small talks with pt before, pt may be very pleasant or unpleasant at times. RD attempted visit twice today, AM and PM, pt slept the whole day except meal time. Spoke to RN, RN stated pt has mood swings, PO intake may be driven by mentation, however so far no nutritional concerns since adm. Unable to complete physical assessment as pt was curled up asleep. Avg PO intake 75-100% of meals since adm, meeting nutritional needs . Current Diet Order/ Nutrition Support Regular Pertinent Medications Maalox, Pepcid, Haldol, Nicotine Transdermal System Pertinent Labs No current labs. Nutritional Hx/Data Height 1.52 m Height (Calculated Centimeters) 152.4 Current Weight (lbs) 51.71 kg Weight (Calculated Kilograms) 51.7 Weight (Calculated Grams) 86480.5 [place] Body Weight 100 Weight Status Approriate GI Symptoms Cultural/Ethnic/Latter Day Belief Pt likes coffee. Skin Integrity/Comment: [place] 19. Skin intact. Current %PO Good (75-100%) Estimated Nutritional Goals BEE in Kcals: Using Current wt Calories/Kcals/Kg CBW 114lb/51.8kg Kcals Calculated 1295-1554kcal (25-30kcal/kg) Protein: Using Current wt Protein Calculated 52g (1g/kg) Fluid: ml 1295-1554ml (1ml/kcal) Nutritional Problem 1. Problem Problem No nutrition problem at this time. Intervention/Recommendation Comments 1. Continue with current diet. Avg PO intake is adequate. Expected Outcomes/Goals Expected Outcomes/Goals 1. PO intake continue to meet at least 75% of estimated nutritional needs.
[2016-10-17] MEDS: Nicotine 21 mg/24 hr Tdm TD SCH (09:49)
== END 2016-10-17 15:45 | DRG 885 ==
LOC: GERO 16:20
PROVIDERS: ADMIT Psychiatry & Neurology Psychiatry; ATTEND Psychiatry & Neurology Psychiatry
DX: F25.0 Schizoaffective disorder, bipolar type (principal); N39.0 Urinary tract infection, site not specified; F41.9 Anxiety disorder, unspecified; G47.00 Insomnia, unspecified; F17.210 Nicotine dependence, cigarettes, uncomplicated; I25.10 Atherosclerotic heart disease of native coronary artery without angina pectoris; K21.9 Gastro-esophageal reflux disease without esophagitis
CPT/HCPCS: 71010-TC; 90899; 93005; G0410; J1200; J1630; J1631; J2060; Z7610